=== PATIENT | male | born 1975 | race Caucasian/White ===

== ENCOUNTER 2020-04-14 17:10 | Inpatient (IN) ==
[2020-04-14] MEDS ORDERED: Aspirin 325 MG TABLET PO ONE (17:51)
[2020-04-14 18:11] LABS: Basophils # 0.1 K/mcL (0.0-0.2); Basophils % 0.8 %; Eosinophils # 0.2 K/mcL (0.0-0.6); Eosinophils % 1.3 %; Hematocrit 51.2 % (37.5-50.1); Hemoglobin 17.2 g/dL (12.9-16.9); Immature Granulocytes % 1.8 % (0-4); Lymphocytes # 2.6 K/mcL (0.6-4.6); Lymphocytes % 15.1 %; Mean Corpuscular HGB Conc 33.6 g/dL (31.6-35.5); Mean Corpuscular Hemoglobin 29.9 pg (28.0-33.3); Mean Platelet Volume 9.5 fL (9.4-12.4); Monocytes # 1.4 K/mcL (0.0-1.3); Monocytes % 8.2 %; Neutrophils # 12.4 K/mcL (1.6-8.9); Platelet Count 357 K/mcL (140-400); Red Blood Count 5.75 M/mcL (4.19-5.50); Red Cell Distribution Width 14.3 % (11.5-14.5); Segmented Neutrophils % 72.8 %; White Blood Count 17.1 K/mcL (4.3-11.1)
[2020-04-14 18:40] LABS: Alanine Aminotransferase 87 Units/L (7-52); Albumin 4.8 g/dL (3.5-5.7); Albumin/Globulin Ratio 1.4 (1.1-2.2); Alkaline Phosphatase 94 Units/L (34-104); Aspartate Amino Transferase 28 Units/L (13-39); BUN/Creatinine Ratio 22 (6-26); Bilirubin,Total 0.8 mg/dL (0.3-1.0); Blood Urea Nitrogen 17 mg/dL (6-20); Calcium 10.9 mg/dL (8.6-10.3); Carbon Dioxide 27 mEq/L (23-29); Chloride 97 mEq/L (98-107); Globulin 3.4 g/dL (2.4-3.5); Glucose 111 mg/dL (70-105); Osmolality,Calculated 282 (280-300); Potassium 3.8 mEq/L (3.5-5.1); Sodium 135 mEq/L (136-145); Total Protein 8.2 g/dL (6.4-8.9); eGFR For African Americans > 60 (> 60); eGFR For Non-African Americans > 60 (> 60)
[2020-04-14] MEDS ORDERED: *HR* Heparin 5,000 UNIT/ML VIAL IVP PRN ×2 (18:46)
[2020-04-14] MEDS ORDERED: *HR* Heparin 5,000 UNIT/ML VIAL IVP ONE (18:46)
[2020-04-14 18:47] LABS: Troponin I 0.13 ng/mL (< 0.04)
[2020-04-14] MEDS ORDERED: *HR* Ticagrelor 90 MG TABLET PO ONE (18:51)
[2020-04-14] MEDS ORDERED: 0.9 % Sodium Chloride 1,000 ML ONE ×3 (18:51→19:14)
[2020-04-14] MEDS ORDERED: Heparin 25,000UNIT/250ML 1/2NS 25,000 UNIT/250 ML IV.SOLN IVC SCH (19:00)
[2020-04-14] MEDS ORDERED: *HR* Heparin 10,000 UNIT/10 ML VIAL ONE (19:07)
[2020-04-14] MEDS ORDERED: Heparin 1,000 UNITS/500 mL 500 ML ONE (19:08)
[2020-04-14] MEDS ORDERED: ISOVUE-370 200 ML INFUS..BTL ONE ×2 (19:08→20:02)
[2020-04-14] MEDS ORDERED: Nitroglycerin 1,000 MCG/10 ML VIAL IV ONE (19:08)
[2020-04-14] MEDS ORDERED: *HR* Midazolam HCl 2 MG/2 ML VIAL ONE (19:14)
[2020-04-14] MEDS ORDERED: *HR* FentaNYL (PF) 100 MCG/2 ML VIAL ONE (19:14)
[2020-04-14 19:37] LABS: INR 1.2; Prothrombin Time 13.4 Seconds (9.4-12.1)
[2020-04-14 19:38] LABS: Heparin anti-factor XA UFH 0.83 IU/mL (0.30-0.70)
[2020-04-14] MEDS ORDERED: niCARdipine 20 MG/200 ML MLS IVC ONE (20:00)
[2020-04-14] MEDS ORDERED: Perflutren Lipid Microsphere 1.3 ML in 0.9 % Sodium Chloride 8.7 ML IVP PRN (20:25)
[2020-04-14] MEDS ORDERED: *HR* Labetalol 100 MG/20 ML MDV ONE (20:28)
[2020-04-14] MEDS ORDERED: Furosemide 40 MG/4 ML VIAL ONE (20:28)
[2020-04-14] MEDS: *HR* Ticagrelor 90 MG TABLET PO SCH (22:09)
[2020-04-14] MEDS: lisinopriL 5 MG TABLET PO SCH (22:10)
[2020-04-14] MEDS ORDERED: Dextrose Gel 15 GM/37.5 ML TUBE PO PRN ×2 (22:14)
[2020-04-14] MEDS ORDERED: D5% in Water 1,000 ML IVC PRN (22:14)
[2020-04-14] MEDS ORDERED: *HR* Dextrose 50 % in Water (Vial) 50 ML VIAL IVP PRN (22:14)
[2020-04-15 05:05] LABS: Basophils # 0.1 K/mcL (0.0-0.2); Basophils % 0.7 %; Eosinophils # 0.2 K/mcL (0.0-0.6); Eosinophils % 1.5 %; Hematocrit 48.5 % (37.5-50.1); Hemoglobin 16.5 g/dL (12.9-16.9); Immature Granulocytes % 1.1 % (0-4); Lymphocytes # 2.5 K/mcL (0.6-4.6); Lymphocytes % 16.1 %; Mean Corpuscular Hemoglobin 30.7 pg (28.0-33.3); Mean Corpuscular Volume 90.1 fL (83.0-100.0); Mean Platelet Volume 9.3 fL (9.4-12.4); Monocytes # 1.7 K/mcL (0.0-1.3); Neutrophils # 10.6 K/mcL (1.6-8.9); Platelet Count 307 K/mcL (140-400); Red Blood Count 5.38 M/mcL (4.19-5.50); Red Cell Distribution Width 14.5 % (11.5-14.5); Segmented Neutrophils % 69.6 %; White Blood Count 15.2 K/mcL (4.3-11.1)
[2020-04-15 05:27] LABS: BUN/Creatinine Ratio 23 (6-26); Blood Urea Nitrogen 18 mg/dL (6-20); Calcium 9.6 mg/dL (8.6-10.3); Carbon Dioxide 27 mEq/L (23-29); Chloride 98 mEq/L (98-107); Chol/HDL Ratio 7.8 (0-4.9); Cholesterol 241 mg/dL (< 200); Glucose 112 mg/dL (70-105); HDL Cholesterol 31 mg/dL (40-59); Osmolality,Calculated 281 (280-300); Potassium 3.6 mEq/L (3.5-5.1); Sodium 134 mEq/L (136-145); Triglycerides 445 mg/dL (< 150); eGFR For African Americans > 60 (> 60); eGFR For Non-African Americans > 60 (> 60)
[2020-04-15 05:51] LABS: Troponin I 2.26 ng/mL (< 0.04)
[2020-04-15 07:39] LABS: Estimated Average Glucose 134 mg/dl; Hemoglobin A1C 6.3 %
[2020-04-15] MEDS: carvediloL 6.25 MG TABLET PO SCH ×3 (08:34→18:44)
[2020-04-15] MEDS: *HR* Ticagrelor 90 MG TABLET PO SCH ×2 (08:36→19:45)
[2020-04-15] MEDS: lisinopriL 5 MG TABLET PO SCH ×2 (08:36→18:43)
[2020-04-15] MEDS ORDERED: Aspirin 81 MG TAB.CHEW PO SCH (09:00)
[2020-04-15] MEDS ORDERED: D5% in Water 1,000 ML IVC PRN ×2 (17:50→18:08)
[2020-04-15] MEDS ORDERED: Dextrose Gel 15 GM/37.5 ML TUBE PO PRN ×4 (17:50→18:08)
[2020-04-15] MEDS ORDERED: *HR* Dextrose 50 % in Water (Vial) 50 ML VIAL IVP PRN ×2 (17:50→18:08)
[2020-04-15] MEDS ORDERED: *HR* Heparin 5,000 UNIT/ML VIAL SQ SCH (18:00)
[2020-04-15] MEDS: Insulin LISPRO 300 UNITS/3 ML VIAL SUBQ SCH (19:46)
[2020-04-15] MEDS ORDERED: Insulin LISPRO 300 UNITS/3 ML VIAL SUBQ SCH (21:00)
[2020-04-16 03:26] LABS: Basophils # 0.1 K/mcL (0.0-0.2); Basophils % 0.7 %; Eosinophils # 0.3 K/mcL (0.0-0.6); Eosinophils % 1.8 %; Hematocrit 48.3 % (37.5-50.1); Hemoglobin 15.9 g/dL (12.9-16.9); Lymphocytes # 2.2 K/mcL (0.6-4.6); Lymphocytes % 14.6 %; Mean Corpuscular HGB Conc 32.9 g/dL (31.6-35.5); Mean Corpuscular Hemoglobin 30.1 pg (28.0-33.3); Mean Corpuscular Volume 91.5 fL (83.0-100.0); Mean Platelet Volume 9.4 fL (9.4-12.4); Monocytes # 1.7 K/mcL (0.0-1.3); Monocytes % 11.1 %; Neutrophils # 10.8 K/mcL (1.6-8.9); Platelet Count 301 K/mcL (140-400); Red Blood Count 5.28 M/mcL (4.19-5.50); Red Cell Distribution Width 14.3 % (11.5-14.5); Segmented Neutrophils % 70.8 %; White Blood Count 15.3 K/mcL (4.3-11.1)
[2020-04-16 03:49] LABS: BUN/Creatinine Ratio 20 (6-26); Blood Urea Nitrogen 17 mg/dL (6-20); Calcium 9.6 mg/dL (8.6-10.3); Carbon Dioxide 25 mEq/L (23-29); Chloride 103 mEq/L (98-107); Glucose 127 mg/dL (70-105); Osmolality,Calculated 287 (280-300); Potassium 4.2 mEq/L (3.5-5.1); Sodium 137 mEq/L (136-145); eGFR For African Americans > 60 (> 60); eGFR For Non-African Americans > 60 (> 60)
[2020-04-16] MEDS: *HR* Heparin 5,000 UNIT/ML VIAL SQ SCH ×2 (05:03→17:22)
[2020-04-16] MEDS ORDERED: Insulin LISPRO 300 UNITS/3 ML VIAL SUBQ SCH (07:30)
[2020-04-16] MEDS: carvediloL 6.25 MG TABLET PO SCH ×2 (07:46→17:21)
[2020-04-16] MEDS: Aspirin 81 MG TAB.CHEW PO SCH (07:46)
[2020-04-16] MEDS: lisinopriL 5 MG TABLET PO SCH (07:46)
[2020-04-16] MEDS: Insulin LISPRO 300 UNITS/3 ML VIAL SUBQ SCH ×4 (07:46→20:07)
[2020-04-16] MEDS: *HR* Ticagrelor 90 MG TABLET PO SCH ×2 (07:46→20:07)
[2020-04-16] MEDS ORDERED: carvediloL 6.25 MG TABLET PO SCH (08:00)
[2020-04-16] MEDS ORDERED: lisinopriL 5 MG TABLET PO SCH (09:00)
[2020-04-17] MEDS: *HR* Heparin 5,000 UNIT/ML VIAL SQ SCH (05:55)
[2020-04-17] MEDS: Insulin LISPRO 300 UNITS/3 ML VIAL SUBQ SCH (08:04)
[2020-04-17] MEDS: *HR* Ticagrelor 90 MG TABLET PO SCH (08:05)
[2020-04-17] MEDS: Aspirin 81 MG TAB.CHEW PO SCH (08:05)
[2020-04-17] MEDS: carvediloL 6.25 MG TABLET PO SCH (08:05)
[2020-04-17] MEDS ORDERED: lisinopriL 5 MG TABLET PO SCH (09:00)
[2020-04-17] MEDS ORDERED: Nitroglycerin 0.4 MG TAB.SUBL SL PRN (09:59)
[2020-04-17 10:53] LABS: Basophils # 0.1 K/mcL (0.0-0.2); Basophils % 0.7 %; Eosinophils # 0.2 K/mcL (0.0-0.6); Eosinophils % 1.6 %; Hematocrit 48.1 % (37.5-50.1); Hemoglobin 16.5 g/dL (12.9-16.9); Lymphocytes # 1.9 K/mcL (0.6-4.6); Lymphocytes % 13.1 %; Mean Corpuscular HGB Conc 34.3 g/dL (31.6-35.5); Mean Corpuscular Hemoglobin 31.2 pg (28.0-33.3); Mean Corpuscular Volume 90.9 fL (83.0-100.0); Mean Platelet Volume 9.5 fL (9.4-12.4); Monocytes # 1.5 K/mcL (0.0-1.3); Monocytes % 9.9 %; Neutrophils # 10.9 K/mcL (1.6-8.9); Platelet Count 288 K/mcL (140-400); Red Blood Count 5.29 M/mcL (4.19-5.50); Red Cell Distribution Width 14.4 % (11.5-14.5); Segmented Neutrophils % 73.7 %; White Blood Count 14.7 K/mcL (4.3-11.1)
[2020-04-17 11:16] LABS: BUN/Creatinine Ratio 26 (6-26); Blood Urea Nitrogen 20 mg/dL (6-20); Calcium 9.9 mg/dL (8.6-10.3); Carbon Dioxide 24 mEq/L (23-29); Chloride 99 mEq/L (98-107); Glucose 131 mg/dL (70-105); Magnesium 2.3 mg/dL (1.6-2.6); Osmolality,Calculated 278 (280-300); Potassium 4.1 mEq/L (3.5-5.1); Sodium 132 mEq/L (136-145); eGFR For African Americans > 60 (> 60); eGFR For Non-African Americans > 60 (> 60)
[2020-04-17 12:52] VITALS: BP 137/87
== END 2020-04-17 14:42 | disposition home or self-care (01) | DRG 247 ==
LOC: EMEROOARM 17:10 → ICNU 19:30
PROVIDERS: ADMIT Internal Medicine Cardiovascular Disease; ATTEND Internal Medicine Cardiovascular Disease